=== PATIENT | female | born 1960 ===

== ENCOUNTER → 2022-09-23 13:46 | Outpatient (BNVA) | payer OTHER, SELFPAY | PROVIDERS: PCP Family Medicine; Visit Provider Family Medicine | DX: Z00.00 Encounter for general adult medical examination without abnormal findings (principal) | CPT/HCPCS: 80053; 80061; 83036; 85025 ==

== ENCOUNTER → 2022-09-25 07:30 | Outpatient (BNVA) | payer OTHER, SELFPAY | PROVIDERS: PCP Family Medicine; Visit Provider Family Medicine | DX: R10.9 Unspecified abdominal pain (principal) | CPT/HCPCS: 81000; 87077; 87086 ==

== ENCOUNTER 2022-09-29 12:52 | Oncology outpatient (recurring) (ONCR) | payer OTHER, SELFPAY ==
--- NOTE | 2022-09-29 13:35 | N.ONRAD NP_ITS ---
Radiation Oncology Consultation Patient Name: Monique Salas Date of : 1960 Date of Service: 09/29/2022 Attending Physician: Slim Otero M.D. Monique Salas was seen in consultation this afternoon at the request of Juan Martinez M.D. for consideration of adjuvant radiotherapy in the management of a recently diagnosed early-stage breast cancer. A screening mammogram (personally reviewed in [facility]) ordered on June 19, 2022 revealed a focal asymmetry with subtle architectural changes within the right breast at the 9 o'clock position. A right diagnostic tomosynthesis mammogram obtained on July confirmed a persistent mass. Ultrasonography demonstrated a hypoechoic mass measuring 1.9 cm x 1.7 cm x 1.3 cm located at the 9 o'clock position that was 6 cm from the nipple. An ultrasound-guided biopsy completed on August 11, 2022 diagnosed a grade II invasive ductal carcinoma. The breast cancer profile was positive for estrogen receptor 100%) and progesterone receptor (100%). HER-2 analysis was negative (IHC 1+). The Ki-67 was 32%. A needle-localized right breast lumpectomy and sentinel lymph node biopsy was performed on September 01, 2022, Juan Martinez M.D. The pathology report (requested from [facility] and personally reviewed in [facility]) confirmed a 2 cm grade 2 invasive ductal carcinoma. The resection margins were negative. A total of 1 benign lymph node was harvested. An Oncotype DX Recurrence Score was 8. She has been prescribed an aromatase inhibitor (Arimidex). I discussed with Ms. Salas The [place] Joint Commission on Cancer Staging and specifically the patient's pathologic stage IA (T1cN0) breast cancer, I also reviewed the National Comprehensive Cancer Network Guidelines recommending adjuvant radiotherapy. This endorsement for treatment is in accordance with the classic study by the NSABP comparing mastectomy, lumpectomy, and lumpectomy with radiotherapy and the Early Breast Cancer Trialist Collaborative Group meta-analysis. She is aware that the addition of radiotherapy to lumpectomy provides improvement in local control and overall survival. Prior to beginning treatment, a planning CT scan will be acquired to delineate the clinical target volume. I anticipate a one-week course of ultra-hypofractionated radiotherapy to the breast. The potential toxicities of adjuvant breast radiotherapy were recounted. The patient has verbalized understanding and would like to proceed as recommended. The patient's medical treatment plan was discussed with Juan Martinez M.D. Signed by: Dr. Slim Otero 09/29/2022 1:34:08 PM
== END 2022-10-17 23:59 | disposition home or self-care (01) ==
PROVIDERS: PCP Family Medicine; Visit Provider Radiology Radiation Oncology
DX: C50.811 Malignant neoplasm of overlapping sites of right female breast; Z17.0 Estrogen receptor positive status [ER+]; Z79.811 Long term (current) use of aromatase inhibitors; R10.2 Pelvic and perineal pain; N39.0 Urinary tract infection, site not specified; Z79.2 Long term (current) use of antibiotics
CPT/HCPCS: 81000; 99205

== ENCOUNTER 2022-11-12 08:56 | Oncology outpatient (recurring) (ONCR) | payer OTHER, SELFPAY ==
--- NOTE | 2022-10-30 09:25 | ONCRAD TMN_ITS ---
Radiation Oncology Treatment Management Note Patient Name: Monique Salas Date of : 1960 Date of Service: 10/30/2022 Attending Physician: Slim Otero M.D. Monique Salas is a 62 year-old white female diagnosed with a pathological stage IA (T1cN0) breast cancer. A screening mammogram ordered on June 19, 2022 revealed a focal asymmetry with subtle architectural changes within the right breast at the 9 o'clock position. A right diagnostic tomosynthesis mammogram obtained on July 21, 2022 confirmed a persistent mass. Ultrasonography demonstrated a hypoechoic mass measuring 1.9 cm x 1.7 cm x 1.3 cm located at the 9 o'clock position that was 6 cm from the nipple. An ultrasound-guided biopsy completed on August 11, 2022 diagnosed a grade II invasive ductal carcinoma. The breast cancer profile was positive for estrogen receptor 100%) and progesterone receptor (100%). HER-2 analysis was negative (IHC 1+). The Ki-67 was 32%. A needle-localized right breast lumpectomy and sentinel lymph node biopsy was performed on September 01, 2022, Juan Martinez M.D. The pathology report confirmed a 2 cm grade 2 invasive ductal carcinoma. The resection margins were negative. A total of 1 benign lymph node was harvested. An Oncotype DX Recurrence Score was 8. She has been prescribed an aromatase inhibitor (Arimidex). She has received 20.8 Gy of a prescribed 26 Gy delivered designed with a 3D conformal radiotherapy plan utilizing opposed tangential portal sood incorporating a [id number] treatment technique. Upon review of systems, she denied any breast complaints to radiotherapy. On physical examination, the patient weighed 201 lbs. Her temperature was 97.6 ???F and the blood pressure was 121/66 mmHg. Her pulse was 85 bpm and her respiratory rate was 18. There was no erythema within the treatment sood of the right breast. Continue breast radiotherapy as prescribed. Signed by: Dr. Slim Otero 10/30/2022 9:24:13 AM
--- NOTE | 2022-10-31 09:17 | N.ONRD TS_ITS ---
Radiation OncologyTreatment Summary Patient Name: Monique Salas Date of : 1960 Date of Service: 10/31/2022 Attending Physician: Slim Otero M.D. Monique Salas has completed adjuvant right breast radiotherapy for the management of a pathological stage IA (T1cN0) breast cancer. A screening mammogram ordered on June 19, 2022 revealed a focal asymmetry with subtle architectural changes within the right breast at the 9 o'clock position. A right diagnostic tomosynthesis mammogram obtained on July 21, 2022 confirmed a persistent mass. Ultrasonography demonstrated a hypoechoic mass measuring 1.9 cm x 1.7 cm x 1.3 cm located at the 9 o'clock position that was 6 cm from the nipple. An ultrasound-guided biopsy completed on August 11, 2022 diagnosed a grade II invasive ductal carcinoma. The breast cancer profile was positive for estrogen receptor 100%) and progesterone receptor (100%). HER-2 analysis was negative (IHC 1+). The Ki-67 was 32%. A needle-localized right breast lumpectomy and sentinel lymph node biopsy was performed on September 01, 2022, Juan Martinez M.D. The pathology report confirmed a 2 cm grade 2 invasive ductal carcinoma. The resection margins were negative. A total of 1 benign lymph node was harvested. An Oncotype DX Recurrence Score was 8. She has been prescribed an aromatase inhibitor (Arimidex). Daily radiotherapy was administered between the dates of October 27, 2022 through October 31, 2022. A prescribed dose of 26 Gy was delivered in 5 fractions encompassing 5 elapsed days. The right breast was treated in the supine position with a 3-dimensional conformal radiotherapy plan applying an opposed tangential portal field design utilizing a [id number]-[id number] treatment technique. The medial tangential field utilized a 65??? gantry angle with a collimator angle of 0???. The field size measured 7 cm x 6.9 cm within the X-direction and 9 cm x 9 cm within the Y-direction. The SSD measured 91.2 cm with the field delivering 262 monitor units. Supplemental ports were designed with MLC that delivered 10 MU and 7 MU. An energy of 15 MV was prescribed. The lateral tangential field employed a gantry angle of 239??? with a collimator angle of 0???. The field size measured 6.9 cm x 7 cm within X-direction and 9 cm x 9 cm within the Y-direction. The measured SSD was 90.3 cm with the field allocating 250 monitor units. Auxiliary sood with multi-leaf collimation were constructed that apportioned 27 MU and 7 MU. A 15 MV photon energy was assigned. All treatments were performed with the [employer] linear accelerator and an isocentric technique. The dose was calculated by Anisotropic Analytic Algorithm. The plan was normalized to deliver 95% of the prescription dose to 95% of the planning target volume. Signed by: Dr. Slim Otero 10/31/2022 9:15:10 AM
--- NOTE | 2022-11-12 10:21 | ONCRAD EPV_ITS ---
Radiation Oncology Established Patient Visit Patient: Maritza Amaya [id number] : 1960> Age: 62> Sex: Female> Dictated by: SoheilaUlises Date of Service: 11/12/2022 Referring Physician(s) : Juan Martinez MD; Betsey Whitten MD Diagnosis: C50.411 - Malignant neoplasm of upper-outer quadrant of right female breast, Diagnosed 08/11/2022 (Active) Stage IA, T1c, pN0, M0, G2, HER2 Neg, ER Pos, [place] P Radiotherapy to Date: Course: Breast 2022 Treatment Site: Breast Ca - Rt Breast Supine, Ref. ID: [id number], Energy: 15X, Dose/Fx (cGy): 520, #Fx: 5 / 5, Dose Correction (cGy): 0, Total Dose (cGy): 2,600, Start Date: 10/27/2022, End Date: 10/31/2022, Elapsed Days: 4 Current History: Mrs. Abernathy returns 2 weeks after completing radiation to the breast following lumpectomy and sentinel node biopsy. She had no problems during treatment. Not have developed since completing treatment. She has not had any erythema, swelling, or tenderness of the right breast. No complaints regarding the left breast. She has started anastrozole. She is tolerating it well. Current Medications: Allergies: No Known Allergies Current Complaints / Review of Systems: . No complaints of any type. Vital Signs: Performed on 11/12/2022 9:19 AM BMI - 37.495 kg/m2 (high), Height - 62 in, Weight - 205 lbs, Temperature - 96.7 f, Pulse - 91 /min, Respiration - 18 /min, O2 Sat - 96 %, Pain - 0, Fatigue - 0 and BP - 120/ 65 mm(hg). Physical Exam: General: Alert and oriented x 3. No acute distress. HEENT: Normocephalic, atraumatic. Extraocular Movements Intact: NECK: Supple without supraclavicular or jugular lymphadenopathy. LUNGS: Clear to auscultation bilaterally without rales, rhonchi or wheeze. HEART: Regular rate and rhythm, normal S1 and S2 without murmur, gallop or rub. MUSCULOSKELETAL: No tenderness or percussion pain over the axial skeleton, scapulae. EXTREMITIES: No peripheral edema is identified. The right arm and hand are normal in appearance. No stiffness or lymphedema. NEUROLOGIC: Cranial nerves II ???XII are grossly intact. Normal gait, no ataxia. Performance Status: KPS 100 Lab: None pending. Pathology: Primary, c50.411 - malignant neoplasm of upper-outer quadrant of right female breast, Diagnosed 08/11/2022 (active) stage ia, t1c, pn0, m0, g2, her2 neg, er pos, pr p. Imaging: See HPI mammogram of the treated breast recommended 6 months. Impression: Doing well. She has started anastrozole and is tolerating it well. We discussed she will likely be on it for 5 years or more. We discussed the imaging schedule for her breasts, likely every 6 months for the right breast for the next 2 years and then annually after that. She will continue annual imaging for the left breast. No questions. She will continue to see Dr. Martinez and Dr. Whitten in follow-up. Signed by: 11/12/2022 10:21:07 AM <<Signature on File>> Time spent with patient: CPT Code: CPT Code:
== END 2022-11-17 23:59 | disposition home or self-care (01) ==
PROVIDERS: PCP Family Medicine; Visit Provider Radiology Radiation Oncology
DX: Z51.0 Encounter for antineoplastic radiation therapy (principal); C50.811 Malignant neoplasm of overlapping sites of right female breast; Z17.0 Estrogen receptor positive status [ER+]; Z79.811 Long term (current) use of aromatase inhibitors; Z79.899 Other long term (current) drug therapy
CPT/HCPCS: 77280; 77295; 77300; 77334; 77336; 77387; 77412

== ENCOUNTER → 2023-02-26 13:41 | Outpatient (BNVA) | payer OTHER, SELFPAY | PROVIDERS: PCP Family Medicine; Visit Provider Podiatrist Foot & Ankle Surgery | DX: M79.672 Pain in left foot (principal); M20.12 Hallux valgus (acquired), left foot; M19.072 Primary osteoarthritis, left ankle and foot | CPT/HCPCS: 73630 ==

== ENCOUNTER 2023-03-05 21:17 | Emergency (ER) | payer OTHER, SELFPAY ==
--- NOTE | 2023-03-05 21:18 | XRR_ITS ---
PROCEDURE INFORMATION: Exam: XR Left Ankle Exam date and time: 03/05/2023 9:32 PM Age: 63 years old Clinical indication: Injury or trauma; Fall; Patient HX: Left ankle pain/swelling post twisting injury TECHNIQUE: Imaging protocol: Radiologic exam of the left ankle. Views: 3 or more views. COMPARISON: No relevant prior studies available. FINDINGS: Bones/joints: No acute fracture or malalignment. Mild calcaneal enthesopathy. Soft tissues: Unremarkable. XR/XR ankle LT min 3V* [id number] IMPRESSION: No acute findings.
[2023-03-05 21:32] VITALS: BP 169/81; PULSE 98; RESP 18; TEMP 37.2; O2SAT 96; BMI 36.6
--- NOTE | 2023-03-05 21:51 | XRR_ITS ---
PROCEDURE INFORMATION: Exam: XR Left Foot Exam date and time: 03/05/2023 10:05 PM Age: 63 years old Clinical indication: Injury or trauma; Fall; Patient HX: Left foot/ankle pain/swelling post twisting injury TECHNIQUE: Imaging protocol: Radiologic exam of the left foot. Views: 3 or more views. COMPARISON: CR (LOW EXM, ) 03/05/2023 9:32 PM FINDINGS: Bones/joints: Hallux valgus deformity at the 1st metatarsophalangeal joint with osseous and soft tissue bunion deformity. Moderate osteoarthrosis of the 1st metatarsophalangeal joint. No acute fracture or dislocation. Soft tissues: See Bones/joints finding. XR/XR foot LT min 3V* [id number] IMPRESSION: No acute osseous abnormality.
--- NOTE | 2023-03-05 22:07 | W.ED.EXTPRO ---
HPI - Extremity Problem General: Chief complaint: Extremity Injury, Lower Stated complaint: Left Ankle Injury Time Seen by Provider: 03/05/23 21:22 History of Present Illness: Patient reports that she missed a step on her back porch tonight and rolled her left ankle and foot. She reports significant pain on her left dorsal lateral foot and also her ankle. Associated symptoms: Deny fever(s) Review of Systems Const: Denies: fever(s) or chills Musc: Reports: extremity pain, joint pain and limited range of motion PFSH ED PFSH: Surgical History History of delivery x 2 History of lumpectomy of right breast (09/01/22) Right breast lumpectomy with axillary sentinel lymph node biopsy Family History Father CAD (coronary artery disease) Cancer skin Diabetes Hyperlipidemia Hypertension Stroke Mother Diabetes Hypertension Sister Diabetes Brother Diabetes Hypertension Denies family history of Clotting disorder Dementia Psychiatric illness Chronic kidney disease (CKD) Suicide Anesthesia complication Bleeding disorder Lung disease Social History Smoking and tobacco/nicotine status: never used tobacco/nicotine Alcohol intake: never Substance/Drug Use: never Household members: spouse Marital status: Number of children: 2 Number of grandchildren: 3 Current occupational status: employed Current occupation: [employer] Leisure activites: other Leisure activities details: gardening Special adina needs: No Agree to transfusion: Yes Physical Exam Const: COMMON NORMALS: patient oriented x3 and alert OTHER: Patient is in obvious pain. She states that she took naproxen at home and does not want any further pain medication at this time. Resp: COMMON NORMALS: normal respiratory effort and No use of accessory muscles Extremity: OTHER: There is tenderness to palpation left dorsal foot more over the 3rd-5th metatarsals. No obvious bony deformity or bruising appreciated. There is also mild tenderness to palpation right medial malleolus. No obvious bony deformity or bruising. Patient is able to flex and extend toes however she does not feel that she is fully extending her toes as she could on her right foot. Pedal pulses palpable and strong. Foot is warm and dry. Neuro: COMMON NORMALS: patient oriented x3 SENSORIUM/ORIENTATION: Yes alert Course Vital Signs: Vital signs: Vital Signs Temperature 98.9 F 03/05/23 21:32 Pulse Rate 98 03/05/23 21:32 Respiratory Rate 18 03/05/23 21:32 Blood Pressure 169/81 03/05/23 21:32 Pulse Oximetry 96 03/05/23 21:32 Oxygen Delivery Me thod Room Air 03/05/23 21:32 MDM - Extremity (Nontraumatic) Medical Decision Making Consider ankle sprain versus fracture versus foot sprain versus fracture X-ray ankle and foot both show no acute osseous deformities. We will Jeffrey wrap ankle and foot provide patient crutches to minimize weightbearing for the next 3 to 5 days then slowly advance weightbearing as tolerated. Discussed conservative treatment at home including ice, rest, elevation of the extremity. Patient wishes to take naproxen at home as needed for pain. Follow-up with PCP. Return to the ER for new or worsening symptoms. Lab Data Radiology Impressions Ankle X-Ray 03/05/23 21:18 IMPRESSION: No acute findings. Foot X-Ray 03/05/23 21:51 IMPRESSION: No acute osseous abnormality. All radiology interpretation(s) finalized by discharge Discharge Plan Discharge Patient Disposition: Home Clinical Impression: Ankle sprain and strain Condition: Stable Prescriptions: No Action cephalexin 500 mg tablet 500 mg PO BID Qty: 14 0RF metronidazole 0.75 % gel 1 applic topical BID Qty: 45 0RF Discharge Orders: Discharge ED (Routine); Ordered 03/05/23 Ordered By: Kizzy Redding Referrals: Joleen Leach MD [Primary Care Provider] - Discharge Diet: Usual diet Discharge Activity: Limit activity as instructed Patient Instructions: Ankle Sprain (ED) Activity Restrictions/Additional Instructions: Your x-rays did not show any acute fracture of the ankle or foot. I recommend conservative treatment for an ankle sprain including ice, rest, elevation of the extremity. Jeffrey wrap is applied in ER today. Use crutches to limit weightbearing on the foot for the next 3 days and then slowly advance weightbearing as tolerated. Follow-up with your primary care provider as needed. Return to the ER for any new or worsening symptoms. Coding Level of Care Code ED Concrete Wall Grinder Operator for Iain Bazzi
[2023-03-05 23:44] VITALS: BP 124/81; PULSE 91; O2SAT 95
== END 2023-03-05 23:47 | disposition home or self-care (01) ==
PROVIDERS: Emergency Provider Nurse Practitioner Family; PCP Family Medicine
DX: S93.402A Sprain of unspecified ligament of left ankle, initial encounter (principal); S96.912A Strain of unspecified muscle and tendon at ankle and foot level, left foot, initial encounter; X50.1XXA Overexertion from prolonged static or awkward postures, initial encounter
CPT/HCPCS: 73610; 73630; 99283; E0114

== ENCOUNTER 2023-03-06 09:16 | Outpatient (CLI) | payer OTHER, SELFPAY ==
--- NOTE | 2023-03-06 09:18 | XR_ITS ---
WS: [id number] Exam: XR knee RT 3V* [id number] Date/Time of Exam: 03/06/2023 9:20 AM Reason For Exam: pain over patella medial knee after fall No fracture or dislocation. The joint compartments are preserved. No joint effusion. IMPRESSION: 1. Negative RIGHT knee.
== END 2023-03-06 09:17 | disposition home or self-care (01) ==
LOC: RAD 09:16
PROVIDERS: PCP Family Medicine; Visit Provider Family Medicine
DX: M25.561 Pain in right knee (principal)
CPT/HCPCS: 73562

== ENCOUNTER → 2023-04-06 13:43 | Outpatient (BNVA) | payer OTHER, SELFPAY | PROVIDERS: PCP Family Medicine; Referring Provider Family Medicine; Visit Provider Nurse Practitioner | DX: M25.561 Pain in right knee (principal) | CPT/HCPCS: 73560; 73565 ==

== ENCOUNTER 2023-04-06 15:02 | Outpatient (CLI) | payer OTHER, SELFPAY | END 2023-04-06 15:03 | disposition home or self-care (01) | LOC: SPT 15:02 | PROVIDERS: PCP Family Medicine; Visit Provider Nurse Practitioner | DX: Z46.89 Encounter for fitting and adjustment of other specified devices (principal); M25.561 Pain in right knee | CPT/HCPCS: 97760; L1812 ==

== ENCOUNTER → 2023-04-08 07:53 | Outpatient (BNVA) | payer OTHER, SELFPAY | PROVIDERS: PCP Family Medicine; Visit Provider Family Medicine | DX: R03.0 Elevated blood-pressure reading, without diagnosis of hypertension (principal); C50.811 Malignant neoplasm of overlapping sites of right female breast; C50.812 Malignant neoplasm of overlapping sites of left female breast | CPT/HCPCS: 80053; 80061; 83036; 85025 ==

== ENCOUNTER 2023-04-15 06:34 | Day surgery (SDC) | payer OTHER, SELFPAY ==
[2023-04-15] VITALS (7 sets, daily range): BP systolic 138–187; BP diastolic 79–98; PULSE 75–102; RESP 14–18; TEMP 36.5–36.7; O2SAT 95–100; BMI 36.6
[2023-04-15] MEDS: acetaminophen 1,000 MG/100 ML PIGGYBACK 400 MG IV (06:57)
[2023-04-15] MEDS: gabapentin 300 mg Capsule PO (06:57)
[2023-04-15] MEDS: sodium chloride 0.9% 1,000 ML 30 ML IV (06:57)
--- NOTE | 2023-04-15 07:24 | P.ANESASSM_ITS ---
Pre-Anesthetic Assessment Height/Weight: Height 1.57 m Weight 90.718 kg Temp Pulse Resp BP Pulse Ox O2 Del Method 97.7 F 102 H 18 138/96 95 Room Air 04/15/23 06:51 04/15/23 06:51 04/15/23 06:51 04/15/23 06:51 04/15/23 06:51 04/15/23 06:51 Preop Diagnosis: Left foot hallux valgus Operation Date: 04/15/23 08:25 Proposed Procedures p ?Left foot first metatarsophalangeal joint arthrodesis 86377,M20.22(Left) - Slim Hinojosa DPM Familial anesthetic complications: None Was Beta Le taken within 24 hours: N/A Was Clonidine taken within 24 hours: N/A Last intake: Intake Last Liquid Date 04/14/23 Last Liquid Time 20:00 Last Solid Date 04/14/23 Last Solid Time 20:00 Social No alcohol and No tobacco Exam alert, oriented x 3, clear to auscultation bilaterally and regular rate & rhythm Airway Mallampati: Class II Dentition: full CV/HEM able to achieve > 4 METs without SOB or Chest pain Metabolic Morbid Obesity [facility] hx infltrating ductal carcinoma breast Anesthetic Plan ASA status: 2 Anesthesia: Choice Risk of > 500 ml blood loss (7ml/kg in children): No Medications/Allergies Home Medications Medication Instructions Recorded Confirmed Last Taken Type metronidazole 0.75 % topical gel 1 applic topical BID #45 grams 09/23/22 04/14/23 Unknown Rx Hinged knee brace #1 ea 04/06/23 04/06/23 Unknown Rx celecoxib 100 mg capsule (Celebrex) 100 mg PO BID #60 caps 04/06/23 04/14/23 04/13/23 Rx anastrozole 1 mg tablet 1 mg PO DAILY 04/14/23 04/14/23 04/13/23 History Allergies Allergy/AdvReac Type Severity Reaction Status Date / Time No Known Allergies Allergy Verified 04/14/23 13:00 Current Medications Generic Name Dose Route Start Last Admin Trade Name Freq PRN Reason Stop Dose Admin Sodium Chloride 1,000 mls @ 30 mls/hr 04/15/23 06:45 04/15/23 06:57 Sodium Chloride 0.9% IV 04/16/23 06:44 30 mls/hr .Q24H PAULA Administration PFSH Anesthesia Medical History MCL sprain of right knee Primary localized osteoarthritis of right knee Surgical History History of delivery x 2 History of lumpectomy of right breast (09/01/22) Right breast lumpectomy with axillary sentinel lymph node biopsy Family History Father CAD (coronary artery disease) Cancer skin Diabetes Hyperlipidemia Hypertension Stroke Mother Diabetes Hypertension Sister Diabetes Brother Diabetes Hypertension Denies family history of Clotting disorder Dementia Psychiatric illness Chronic kidney disease (CKD) Suicide Anesthesia complication Bleeding disorder Lung disease Social History Smoking and tobacco/nicotine status: never used tobacco/nicotine Alcohol intake: never Substance/Drug Use: never Household members: spouse Marital status: Number of children: 2 Number of grandchildren: 3 Current occupational status: employed Current occupation: [employer] Leisure activites: other Leisure activities details: gardening Special adina needs: No Agree to transfusion: Yes Data Anesthesia Cardiac Studies: No Data to Display
--- NOTE | 2023-04-15 07:56 | W.PM.OPSUD ---
Surgery/Procedure H&P Update DATE OF PROCEDURE: April 15, 2023 DATE H&P PERFORMED: 04/08/23 H&P UPDATE INFORMATION: I have reviewed H&P completed within last 30 days, I have examined patient prior to procedure, No changes to prior documentation and H&P is in [facility] EMR on date indicated PREOP DIAGNOSIS: Left foot hallux valgus PLANNED PROCEDURE: Operation Date: 04/15/23 08:25 Proposed Procedures p ?Left foot first metatarsophalangeal joint arthrodesis 18329,M20.22(Left) - Slim Hinojosa DPM
[2023-04-15] MEDS: ceFAZolin 2,000 MG in sodium chloride 0.9% (plus) 50 ML 100 MG IV (08:16)
[2023-04-15] MEDS: BUPivacaine 0.5% INJ 30 mL INJECTION (08:53)
--- NOTE | 2023-04-15 09:46 | P.BOP_ITS ---
Date of procedure: 04/15/2023 Surgeon name: Dr. Slim Hinojosa D.P.M. Property Economist(s) name(s): Nazia Delvalle Procedure(s) performed: Left foot first metatarsophalangeal joint arthrodesis Description of findings: Arthritic changes to the left foot first metatarsophalangeal joint with concomitant hallux valgus deformity Estimated blood loss: 5 cc Tourniquet time: 60 minutes Specimen(s) removed: None Post-operative diagnosis: Left foot hallux valgus, first metatarsophalangeal joint osteoarthritis
--- NOTE | 2023-04-15 09:47 | P.OP_ITS ---
Operative Report Date of procedure: April 15, 2023 Pre-op diagnosis: Left foot hallux valgus/hallux rigidus Post-op diagnosis: Same Post-op findings: Degenerative changes left first metatarsophalangeal joint consistent with osteoarthritis Procedure done: Left foot first metatarsophalangeal joint arthrodesis CPT 31645 Implants: First metatarsophalangeal joint plate with corresponding 2.7 and 3.5 mm locking screws. 3.5 interfrag screw all from [place] Surgeon: Slim Hinojosa DPM Estimated blood loss: 5 cc 60 minutes Complications: None Findings: See above Procedure: Patient is a 63-year-old female that has a history of left foot hallux valgus with concomitant first metatarsophalangeal joint osteoarthritis. The patient has had the aforementioned chief complaint for some time. Conservative treatment measures have been attempted and the patient has opted for surgical intervention at this time. A lengthy discussion regarding the procedure, including risks and complications has been had with the patient and is noted in the recent clinic note. Written and verbal consent have been obtained. All patient questions have been answered to the patient?s satisfaction. No written or verbal guarantees have been given or implied. The patient has been NPO since midnight. The history has been reviewed and the history and physical is current. The signed consent was confirmed and placed in the patient chart. Patient imaging has been reviewed and is consistent with the diagnosis. Under mild sedation, the patient was brought into the operating room and placed on the table in the supine position. IV antibiotics were given by the anesthesia team as preoperative surgical prophylaxis. IV sedation was then performed by the anesthesiateam. A local field block was then performed using 0.5% Marcaine plain. A pneumatic tourniquet was then placed about the left ankle. The operative extremity was then prepped and draped in the usual fashion. The extremity was then elevated and exsanguinated before the tourniquet was inflated to 250 mmHg. After inflation, the following procedure was then performed. Attention was directed to the left first metatarsophalangeal joint where a 4.5 cm incision was made dorsally using a #15 blade. Dissection was carried down through subcutaneous and superficial fascia to the level of the first metatarsophalangeal joint capsule. Any bleeders were cauterized as necessary using electrocautery. Care was taken to preserve the extensor hallucis longus tendon as well as the medial neurovascular bundle. #15 blade was used to incise the first metatarsophalangeal joint thus exposing the underlying first metatarsal phalangeal joint. Dissection was further carried out using a #15 blade to expose the entirety of the first metatarsophalangeal joint and the head of the first metatarsal. There was noted to be erosive changes in the head of the first metatarsal consistent with arthritis. There is also noted to be periarticular spurring. Using a sagittal bone saw the osteophytes at the first metatarsal head were removed and passed from the operative field. Next a 0.062 K wire was driven into the head of the first metatarsal centrally before a concave reamer was placed over the wire and used to ream the first metatarsal head. After reaming, all articular cartilage from the head of the first metatarsal was noted to be removed duration for arthrodesis. Next a 0.062 K wire was removed and driven into the base the proximal phalanx centrally. A corresponding convex reamer was used to remove the articular cartilage from the base the proximal phalanx preparation for arthrodesis. Next the site was irrigated with copious muscle sterile saline before K wire was used to fenestrate the head of first metatarsal base the proximal phalanx. The hallux was then positioned into the appropriate position clinically as well as radiographically which was confirmed on C-arm fluoroscopy. The dorsal first metatarsophalangeal joint plate from [place] was then positioned into the appropriate position and temporarily fixated using olive wires. Good positioning of the plate was noted clinically as well as on C-arm imaging. A 3.5 mm lag screw was then driven across the arthrodesis site to provide compression and a distal medial to proximal lateral orientation. The first metatarsophalangeal joint arthrodesis plate was then drilled and filled in standard fashion. Final C arm images were obtained to confirm the positioning of the plate and screws, they were noted to be in the appropriate position. The site was then irrigated with copious amounts of sterile saline. Deep tissue was closed including capsular closure using 3-0 Vicryl followed by subcuticular closure with 4-0 Vicryl and skin closure with 4-0 nylon in running interlocking fashion. The incision was dressed with Xeroform, 4 x 4 gauze, Kerlix before being placed in a well-padded below the knee posterior splint The patient tolerated the procedure and anesthesia well and without complication. The patient was transported from the operating room to the recovery room with vital signs stable and vascular status intact to all digits of the foot. The patient was given both written and verbal instructions to remain nonweightbearing to the operative extremity, to keep dressings/splint clean, dry and intact and to take pain medication as directed. The patient will follow-up in the outpatient setting at their scheduled appointment. The patient was discharged with my personal number and was instructed to call if any questions or issues should arise. They were discharged home once anesthesia nolan coronel was met.
--- NOTE | 2023-04-15 10:40 | ANE.PACU2 ---
Inpatient post-anesthesia follow up: Airway intact: Yes Vital signs: Temperature 98.0 F Pulse Rate 75 Respiratory Rate 16 Blood Pressure 143/89 Pulse Oximetry 100 Oxygen Delivery Me thod Room Air Oxygen Flow Rate 6 Fraction of Inspir ed Oxygen Hydration adequate: Yes Nausea and vomiting: No Pain level: 1 Mental status: Baseline
--- NOTE | 2023-04-16 | XR_ITS ---
WS: [id number] INTRAOPERATIVE TECHNIQUE: Spot fluoroscopic images for intraoperative purposes. FLUOROSCOPY TIME: seconds CLINICAL INFORMATION: YAMILET PICS COMPARISON: None. FINDINGS: Plate and screw fixation first MTP with bunionectomy IMPRESSION: Images obtained for intraoperative purposes.
== END 2023-04-15 10:40 | disposition home or self-care (01) ==
PROVIDERS: PCP Family Medicine; Visit Provider Podiatrist Foot & Ankle Surgery
PROC: (CPT 28740; principal; 2023-04-15 08:15)
DX: M20.22 Hallux rigidus, left foot (principal); M19.072 Primary osteoarthritis, left ankle and foot; E66.01 Morbid (severe) obesity due to excess calories; Z68.36 Body mass index [BMI] 36.0-36.9, adult; Z85.3 Personal history of malignant neoplasm of breast
CPT/HCPCS: 28750; 73660; 76000; C1713; J0131; J0690; J2405; J2704; J3010; J3490; J7030

== ENCOUNTER 2023-04-29 06:00 | Outpatient (CLI) | payer OTHER, SELFPAY | END 2023-04-29 06:01 | LOC: SPT 04-30 08:23 | PROVIDERS: PCP Family Medicine; Visit Provider Podiatrist Foot & Ankle Surgery | DX: Z46.89 Encounter for fitting and adjustment of other specified devices (principal); Q70.22 Fused toes, left foot | CPT/HCPCS: L4361 ==

== ENCOUNTER → 2023-04-29 13:28 | Outpatient (BNVA) | payer OTHER, SELFPAY | PROVIDERS: PCP Family Medicine; Visit Provider Podiatrist Foot & Ankle Surgery | DX: Z98.890 Other specified postprocedural states (principal); M20.12 Hallux valgus (acquired), left foot; M19.072 Primary osteoarthritis, left ankle and foot | CPT/HCPCS: 73630 ==

== ENCOUNTER → 2023-05-13 14:03 | Outpatient (BNVA) | payer OTHER, SELFPAY | PROVIDERS: PCP Family Medicine; Visit Provider Podiatrist Foot & Ankle Surgery | DX: Z98.890 Other specified postprocedural states; M20.12 Hallux valgus (acquired), left foot; M19.072 Primary osteoarthritis, left ankle and foot | CPT/HCPCS: 73630 ==

== ENCOUNTER → 2023-05-27 14:41 | Outpatient (BNVA) | payer OTHER, SELFPAY | PROVIDERS: PCP Family Medicine; Visit Provider Podiatrist Foot & Ankle Surgery | DX: Z98.890 Other specified postprocedural states (principal); M20.12 Hallux valgus (acquired), left foot; M19.072 Primary osteoarthritis, left ankle and foot | CPT/HCPCS: 73630 ==

== ENCOUNTER → 2023-06-17 13:30 | Outpatient (BNVA) | payer OTHER, SELFPAY | PROVIDERS: PCP Family Medicine; Visit Provider Podiatrist Foot & Ankle Surgery | DX: Z98.890 Other specified postprocedural states (principal); M20.12 Hallux valgus (acquired), left foot; M19.072 Primary osteoarthritis, left ankle and foot | CPT/HCPCS: 73630 ==

== ENCOUNTER → 2023-07-06 12:33 | Outpatient (BNVA) | payer OTHER, SELFPAY | PROVIDERS: PCP Family Medicine; Visit Provider Family Medicine | DX: R05.9 Cough, unspecified (principal) | CPT/HCPCS: 85025 ==

== ENCOUNTER → 2024-01-28 08:38 | Outpatient (BNVA) | payer OTHER, SELFPAY | PROVIDERS: PCP Family Medicine; Visit Provider Family Medicine | DX: R30.0 Dysuria (principal) | CPT/HCPCS: 81000; 87086 ==

== ENCOUNTER 2024-05-05 08:32 | Emergency (ER) | payer OTHER, SELFPAY ==
[2024-05-05 08:44] VITALS: BP 178/139; PULSE 158; RESP 20; TEMP 36.8; O2SAT 95; BMI 36.6
--- NOTE | 2024-05-05 08:53 | ECG_ITS ---
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1960 Requested By: Alec Boswell Order Number: [id number] Reading MD: ELEANOR BYRD Measurements Intervals [place] Rate: 155 P: 112 NV: 75 QRS: 47 QRSD: 128 T: 35 QT: 327 QTc: 527 Interpretive Statements POSSIBLE ATRIAL FLUTTER MODERATE INTRAVENTRICULAR CONDUCTION DELAY [110+ ms QRS DURATION] ST ELEVATION, CONSIDER INFERIOR INJURY [MARKED ST ELEVATION W/O NORMALLY INFLECTED T-WAVE IN II/aVF] No previous ECG available for comparison Electronically Signed On 05-06-2024 23:26:47 MIDDLE SCHOOL SPORTS COACH by ELEANOR BYRD [id number]
--- NOTE | 2024-05-05 08:53 | XR_ITS ---
WS: [id number] XR chest 1V portable [id number] REASON FOR EXAM: dyspnea/cough FINDINGS: Significant overlying artifact. No previous examination. The heart and the mediastinum are within normal limits. Calcified granulomas disease bilaterally. Possible interstitial lung opacities mid left lung. This may be normal lung markings accentuated by o verlying devices. Mild degenerative spondylosis in the thoracic spine. XR/XR chest 1V portable [id number] IMPRESSION: Potential acute pneumonitis as above. Recommend repeat examination with overlyi ng devices been removed if possible.
--- NOTE | 2024-05-05 09:02 | ECG_ITS ---
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
--- NOTE | 2024-05-05 09:05 | ED_ITS ---
HPI - Arrhythmia/Palpitations 2 General: Chief Complaint: Headache Stated Complaint: high bp and hr sent from urgent care Time Seen by Provider: 05/05/24 08:49 History of Present Illness: 64-year-old female who presents to the e mergency room with elevated blood pressure and rapid heart rate. Patient presented to the urgent care clinic initially with a headache was noted to be hypertensive and tachycardic she is not currently on any medications. She states for the last 2 weeks she has intermittently had rapid heart rates with her headache. She has impaired glucose tolerance so she is not on any prescription medications for blood pressure or heart rate. She has never had any kind of cardiac events she is aware of or cardiac evaluation. She does have a history of breast cancer it was stage I and was treated locally with radiation and she is currently on hormone replacement therapy. She denies having any chest pain at this time. Related Data Home Medications Medication Instructions Recorded Confirmed anastrozole 1 mg tablet 1 mg PO DAILY 04/14/23 05/05/24 calcium 250 mg 1 tab PO DAILY 05/05/24 05/05/24 (citrate)-ergocalciferol (D2) 2.5 mcg (100 unit) tablet (Evans-Citrate) diphenhydramine HCl 25 mg capsule 25 mg PO TID PRN Allergic Symptoms 05/05/24 05/05/24 (Benadryl) Previous Rx's Medication Instructions Recorded metoprolol tartrate 25 mg tablet 25 mg PO BID #60 tabs 05/05/24 Allergies Allergy/AdvReac Type Severity Reaction Status Date / Time No Known Allergies Allergy Verified 05/05/24 07:43 Review of Systems 2 Const: Denies: fever(s) or chills Card: Reports: palpitations; Denies: chest pain Resp: Denies: dyspnea GI: Denies: abdominal pain : Denies: dysuria, urinary frequency or urinary urgency Musc: Denies: neck pain or back pain Skin/Breast: Denies: rash Neuro: Reports: headache(s) PFSH ED 2 PFSH: Medical History Tachycardia MCL sprain of right knee Primary localized osteoarthritis of right knee Surgical History History of delivery x 2 History of lumpectomy of right breast (09/01/22) Right breast lumpectomy with axillary sentinel lymph node biopsy Family History Father CAD (coronary artery disease) Cancer skin Diabetes Hyperlipidemia Hypertension Stroke Mother Diabetes Hypertension Sister Diabetes Brother Diabetes Hypertension Denies family history of Clotting disorder Dementia Psychiatric illness Chronic kidney disease (CKD) Suicide Anesthesia complication Bleeding disorder Lung disease Social History Smoking and tobacco/nicotine status: never used tobacco/nicotine Alcohol intake: never Substance/Drug Use: never Household members: spouse Marital status: Number of children: 2 Number of grandchildren: 3 Current occupational status: employed Current occupation: [email or web address] Leisure activites: other 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 Special adina needs: No Agree to transfusion: Yes Physical Exam 2 Const: GENERAL APPEARANCE: cooperative ORIENTATION/CONSCIOUSNESS: Yes awake, Yes oriented to person, Yes oriented to place and Yes oriented to time HENMT: COMMON NORMALS: normocephalic, atraumatic and hearing grossly normal bilaterally HEAD & SCALP: normocephalic and atraumatic Resp: COMMON NORMALS: normal respiratory effort, No retractions, No use of accessory muscles and clear to auscultation bilaterally AUSCULTATION: clear to auscultation bilaterally Cardio: COMMON NORMALS: regular rhythm and No murmurs present (Cardio) R ATE: tachycardic RHYTHM: regular rhythm GI: COMMON NORMALS: Soft to palpation and No hepatosplenomegaly present A USCULTATION: Yes normoactive bowel sounds PALPATION: Yes Soft to palpation, No Tenderness to palpation present (GI), No Guarding due to palpation present (GI) and Yes No hepatosplenomegaly present Extremity: COMMON NORMALS: normal to inspection, capillary refill normal, no clubbing, cyanosis or edema, no calf tenderness and no pedal edema Neuro: SENSORIUM/ORIENTATION: Yes oriented to person, Yes oriented to place and Yes oriented to time Skin: COMMON NORMALS: no rashes or lesions noted GENERAL SKIN EXAM: no rashes or lesions noted Course 2 Vital Signs: Vital signs: Vital Signs Temperature 98.2 F 05/05/24 08:44 Pulse Rate 84 05/05/24 10:41 Respiratory Rate 23 H 05/05/24 10:08 Blood Pressure 147/82 05/05/24 10:41 Pulse Oximetry 98 05/05/24 10:41 Oxygen Delivery Me thod Room Air 05/05/24 08:44 MDM - Arrhythmia/Palpitations Medical Decision Making Patient presents with SVT. We tried several vagal maneuvers while IV access was being obtained. None of these were successful she was given 6 mg of adenosine her SVT ceased and she went into a sinus tachycardia repeat EKG shows a sinus tachycardia with a rate of 102. Laboratory test pending. Labs and imaging reviewed questionable mild pneumonia. Patient otherwise is doing well she feels much better will started on metoprolol tartrate 25 mg twice daily her blood pressure should easily tolerate this. Will also put her on a course of Levaquin. Have her follow-up with primary care to reevaluate rate control and blood pressure within the next week. Lab Data 05/05/24 08:58 05/05/24 08:58 Radiology Impressions Chest X-Ray 05/05/24 09:36 IMPRESSION: No definite acute abnormality as above. Laboratory Results WBC 9.42 10^3/uL (3.29-11.43) 05/05/24 08:58 RBC 5.10 10^6/uL (3.85-5.65) 05/05/24 08:58 Hgb 15.60 g/dL (11.27-16.99) 05/05/24 08:58 Hct 45.9 % (36-47) 05/05/24 08:58 MCV 90.0 fl (85-98) 05/05/24 08:58 MCH 30.6 pg (27-33) 05/05/24 08:58 MCHC 34.0 g/dL (30-55) 05/05/24 08:58 RDW 12.7 % (12.1-15.1) 05/05/24 08:58 Plt Count 256 10^3/cmm (157-399) 05/05/24 08:58 MPV 10.3 fL (7.4-10.4) 05/05/24 08:58 Neut % (Auto) 77.0 % 05/05/24 08:58 Lymph % (Auto) 14.5 % 05/05/24 08:58 Hendry % (Auto) 7.1 % 05/05/24 08:58 Eos % (Auto) 0.8 % 05/05/24 08:58 Baso % (Auto) 0.4 % 05/05/24 08:58 Neut # (Auto) 7.24 10^3/uL (1.8-7.7) 05/05/24 08:58 Lymph # (Auto) 1.4 10^3/uL (0.8-4.8) 05/05/24 08:58 [place]ry # (Auto) 0.7 10^3/uL (0.2-0.9) 05/05/24 08:58 Eos # (Auto) 0.1 10^3/uL (0.0-0.8) 05/05/24 08:58 Baso # (Auto) 0.0 10^3/uL (0.0-0.1) 05/05/24 08:58 Nucleated RBC % (auto) 0 % 05/05/24 08:58 Nucleated RBCs # 0.0 /100WBC 05/05/24 08:58 Sodium 138 mmol/L (136-145) 05/05/24 08:58 Potassium 4.4 mmol/L (3.5-5.1) 05/05/24 08:58 Chloride 99 mmol/L (98-107) 05/05/24 08:58 Carbon Dioxide 27 mmol/L (22-29) 05/05/24 08:58 Anion Gap 16.4 (5-19) 05/05/24 08:58 BUN 15 mg/dL (8-23) 05/05/24 08:58 Creatinine 0.7 mg/dL (0.5-0.9) 05/05/24 08:58 GFR Calculation 83.7 mL/min (90-130) L 05/05/24 08:58 Glucose 138 mg/dL (65-115) H 05/05/24 08:58 Calculated Osmolality 289 mOsm/kg (285-295) 05/05/24 08:58 Calcium 9.8 mg/dL (8.5-10.5) 05/05/24 08:58 Total Bilirubin 0.7 mg/dL (0.15-1.2) 05/05/24 08:58 AST 13 U/L (0-32) 05/05/24 08:58 ALT 10 U/L (0-33) 05/05/24 08:58 Alkaline Phosphatase 132 U/L (35-105) H 05/05/24 08:58 Troponin T Baseline < 6 ng/L (0-10) 05/05/24 08:58 Total Protein 7.9 g/dL (6.6-8.7) 05/05/24 08:58 Albumin 4.9 g/dL (3.5-5.2) 05/05/24 08:58 Globulin 3.0 g/dL (1.3-4.6) 05/05/24 08:58 TSH 2.99 uIU/mL (0.27-4.20) 05/05/24 08:58 All radiology interpretation(s) finalized by discharge Discharge Plan Discharge Patient Disposition: Home Clinical Impression: SVT (supraventricular tachycardia), Pneumonia Condition: Stable Prescriptions: New metoprolol tartrate 25 mg tablet 25 mg PO BID Qty: 60 0RF No Action anastrozole 1 mg tablet 1 mg PO DAILY diphenhydramine HCl [Benadryl] 25 mg Capsule 25 mg PO TID PRN (Reason: Allergic Symptoms) Evans-Citrate 250 mg-2.5 mcg (100 unit) Tablet 1 tab PO DAILY Discharge Orders: Discharge ED (Routine); Ordered 05/05/24 Ordered By: Alec Quiroz Referrals: Joleen Leach MD [Primary Care Provider] - Discharge Diet: Usual diet Discharge Activity: Increase activity as tolerated Patient Instructions: Opioid Safety, Pain Management Activity Restrictions/Additional Instructions: Thank you for choosing [facility] for your healthcare needs today. It is very important that you follow up as instructed or that you return to the Emergency Department should you have concerns or if your condition changes or worsens in any way. You were seen in the emergency room for an arrhythmia called supraventricular tachycardia. You were converted easily with a single dose of medication. Recommend that you start metoprolol 25 mg 1 tablet twice a day. If you have a recurrence of a rapid heart rate that is sustained return to the emergency room. Case management make arrangements for you to have an outpatient echocardiogram and a consult with cardiology. We also noted on your chest x-ray a small area of pneumonia on the left lung. You are given oral antibiotics. It is very important for you to have a repeat chest x-ray in approximately 10 to 14 days to ensure that this area clears. Avoid stimulants such as phenylephrine and pseudoephedrine Afrin nasal spray nicotine caffeine or alcohol as all of these things are likely to accelerate your heart rate. Coding Level of Care Code ED Road Engineer [employer] for Iain Bazzi
[2024-05-05] MEDS: sodium chloride 0.9% (100 ml) 500 ML 999 ML (09:06)
[2024-05-05 09:07] LABS: Basophils % 0.4 %; Eosinophils # 0.1 10^3/uL (0.0-0.8); Eosinophils % 0.8 %; Hematocrit 45.9 % (36-47); Lymphocytes # 1.4 10^3/uL (0.8-4.8); Lymphocytes % 14.5 %; Mean Corpuscular Hemoglobin 30.6 pg (27-33); Mean Platelet Volume 10.3 fL (7.4-10.4); Monocytes # 0.7 10^3/uL (0.2-0.9); Monocytes % 7.1 %; Neutrophils # 7.24 10^3/uL (1.8-7.7); Nucleated Red Blood Cells % 0 %; Platelet Count 256 10^3/cmm (157-399); Red Cell Distribution Width 12.7 % (12.1-15.1); White Blood Count 9.42 10^3/uL (3.29-11.43)
[2024-05-05 09:15] VITALS: PULSE 95; RESP 15; O2SAT 96
[2024-05-05] MEDS: metoprolol tartrate 25 mg Tablet PO (09:27)
[2024-05-05 09:28] LABS: Troponin(5th) Baseline < 6 ng/L (0-10)
[2024-05-05 09:35] LABS: Alanine Aminotransferase 10 U/L (0-33); Albumin Level 4.9 g/dL (3.5-5.2); Alkaline Phosphatase 132 U/L (35-105); Anion Gap 16.4 (5-19); Aspartate Amino Transferase 13 U/L (0-32); Blood Urea Nitrogen 15 mg/dL (8-23); Calcium 9.8 mg/dL (8.5-10.5); Carbon Dioxide 27 mmol/L (22-29); Chloride 99 mmol/L (98-107); Creatinine Clr Calc Pharmacy 72.4521; Glomerular Filtration Rate 83.7 mL/min (90-130); Glucose 138 mg/dL (65-115); Osmolality Calculated 289 mOsm/kg (285-295); Potassium 4.4 mmol/L (3.5-5.1); Sodium 138 mmol/L (136-145); Thyroid Stimulating Hormone 2.99 uIU/mL (0.27-4.20); Total Bilirubin 0.7 mg/dL (0.15-1.2); Total Protein 7.9 g/dL (6.6-8.7)
--- NOTE | 2024-05-05 09:36 | XR_ITS ---
WS: [id number] XR chest 1V portable [id number] REASON FOR EXAM: remove everything from patient's chest and repeat x-ray FINDINGS: The repeat examination indicates that the previously suspicion abnormality with combination of overla pping artifact and rib and calcified granulomatous change. No definite acute abnormality. XR/XR chest 1V portable [id number] IMPRESSION: No definite acute abnormality as above.
[2024-05-05 10:08] VITALS: BP 141/74; PULSE 81; RESP 23; O2SAT 95
[2024-05-05 10:41] VITALS: BP 147/82; PULSE 84; O2SAT 98
== END 2024-05-05 10:42 | disposition home or self-care (01) ==
PROVIDERS: Emergency Provider Family Medicine; PCP Family Medicine
DX: I47.10 Supraventricular tachycardia, unspecified (principal); J18.9 Pneumonia, unspecified organism
CPT/HCPCS: 71045; 80053; 84443; 84484; 85025; 93005; 99285

== ENCOUNTER 2024-06-24 07:20 | Outpatient (CLI) | payer OTHER, SELFPAY ==
--- NOTE | 2024-06-24 07:29 | USCV_ITS ---
Monique Salas Age: 64 Gender: F : 1960 Exam Date: 06/24/2024 08:16 Ordering Phys: Joleen Leach MD Technologist: Gagan Gomes Exam Location: [facility] Indication: SVT BP: 120 / 82 HR: 51 Rhythm: Sinus Technical Quality: Adequate MEASUREMENTS (Male / Female) Normal Values 2D ECHO LV Diastolic Diameter PLAX 4.5 cm 4.2 - 5.9 / 3.9 - 5.3 cm IVS Diastolic Thickness 1.2 cm 0.6 - 1.0 / 0.6 - 0.9 cm IVS Systolic Thickness 1.4 cm LVPW Diastolic Thickness 1.4 cm 0.6 - 1.0 / 0.6 - 0.9 cm LVPW Systolic Thickness 1.5 cm LVOT Diameter 2.0 cm LV Ejection Fraction 2D Teich 58.9 % LV Ejection Fraction MOD 4C 66.7 % LV Ejection Fraction MOD 2C 68.8 % LV Ejection Fraction 2C AL 69.3 % LA Diameter 3.6 cm RA Systolic Volume 4C AL 47.3 ml RA Systolic Volume 4C MOD 45.5 ml LA Sys Volume AL 43.6 cm cubed LA Sys Volume Index AL 21.3 cm cubed/m squared Aorta at Sinotubular Diameter 2.4 cm IVC Diameter 1.3 cm M-MODE LA Ao Ratio MM 1.1 AV Cusp Separation MM 1.3 cm DOPPLER AV Peak Velocity 118.0 cm/s LVOT Peak Velocity 80.0 cm/s AV Area Cont Eq vti 2.5 cm squared AV Area Cont Eq pk 2.2 cm squared MV Peak Velocity 91.0 cm/s MV Area PHT 4.9 cm squared Mitral E to A Ratio 1.2 TV Peak Velocity 261.0 cm/s TR Peak Velocity 318.0 cm/s TR Peak Gradient 40.4 mmHg TR Mean Velocity 242.0 cm/s TR Mean Gradient 25.0 mmHg TR Velocity Time Integral 109.6 cm PV Peak Velocity 76.3 cm/s RV Ejection Time 0.4 s FINDINGS Left Ventricle Left ventricle is normal size. LV systolic function is normal with EF of 55-60%. No regional wall hemorrhages are seen. Right Ventricle Normal in size and function Right Atrium Normal in size Left Atrium Normal in size Mitral Valve Mild mitral annular calcification. Mild mitral regurgitation. Aortic Valve Aortic valve is thickened and calcified. No significant stenosis or regurgitation. Tricuspid Valve Mild tricuspid regurgitation. Insufficient TR jet to calculate RVSP Pulmonic Valve Trace pulmonic regurgitation. Pericardium Normal Aorta Normal in size IVC Appears to be normal CONCLUSIONS LV systolic function is normal with EF 55 to 60%. Mild mitral regurgitation. Mild tricuspid regurgitation Trace pulmonic regurgitation next Sajan Neely MD (Electronically Signed) Final Date: 25 June 2024 11:29 S
== END 2024-06-24 07:21 | disposition home or self-care (01) ==
LOC: RAD 07:26
PROVIDERS: PCP Family Medicine; Visit Provider Family Medicine
DX: I47.10 Supraventricular tachycardia, unspecified (principal); I34.81 Nonrheumatic mitral (valve) annulus calcification; I34.0 Nonrheumatic mitral (valve) insufficiency; I35.8 Other nonrheumatic aortic valve disorders; I07.1 Rheumatic tricuspid insufficiency
CPT/HCPCS: 93306

== ENCOUNTER → 2024-10-19 08:50 | Outpatient (BNVA) | payer MEDICARE, OTHER, SELFPAY | PROVIDERS: PCP Family Medicine; Visit Provider Nurse Practitioner Family | DX: L82.1 Other seborrheic keratosis (principal); L81.4 Other melanin hyperpigmentation; D22.5 Melanocytic nevi of trunk; Z12.83 Encounter for screening for malignant neoplasm of skin | CPT/HCPCS: 99213 ==